=== PATIENT | male | born 1960 | race Two or more races ===

== ENCOUNTER 2020-03-27 15:03 | Inpatient (IN) | payer OTHER ==
[~2020-03-27] VITALS: Ht 170.2 cm; Wt 54.9 kg
--- NOTE | 2020-03-27 15:08 | NUR ---
ED Nurse Note: Officer Yan # [id number] placed patient on 5150.
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
[2020-03-27 15:16] VITALS: BP 140/92
--- NOTE | 2020-03-27 15:30 | NUR ---
ED Nurse Note: all patient's belongiongs were placed in locker #3
--- NOTE | 2020-03-27 16:39 | Diagnostic Imaging Report ---
Indication: Chest pain Technique: One view of the chest Comparison: none Findings: Lungs and pleural spaces are clear. The heart size is normal. Impression: No acute process
[2020-03-27 17:13] LABS: BASOPHILS % (AUTO) 2.6 % (0.0-2.0); EOSINOPHILS % (AUTO) 2.9 % (0.0-3.0); HEMATOCRIT 42.1 % (42.0-52.0); LYMPHOCYTES % (AUTO) 36.2 % (20.0-45.0); MEAN CORPUSCULAR VOLUME 94 FL (80-99); MONOCYTES % (AUTO) 9.9 % (1.0-10.0); NEUTROPHILS % (AUTO) 48.4 % (45.0-75.0); PLATELET COUNT 180 K/UL (150-450); RED BLOOD COUNT 4.46 M/UL (4.70-6.10); RED CELL DISTRIBUTION WIDTH 13.3 % (11.6-14.8); WHITE BLOOD COUNT 7.6 K/UL (4.8-10.8)
[2020-03-27 17:19] LABS: ANION GAP 12 mmol/L (5-15); BLOOD UREA NITROGEN 19 mg/dL (7-18); CALCIUM 9.1 MG/DL (8.5-10.1); CARBON DIOXIDE 24 MMOL/L (21-32); CHLORIDE 107 MMOL/L (98-107); CREATININE 1.2 MG/DL (0.55-1.30); POTASSIUM 4.1 MMOL/L (3.5-5.1); SODIUM 143 MMOL/L (136-145)
[2020-03-27 17:30] LABS: ALANINE AMINOTRANSFERASE 20 U/L (12-78); ALBUMIN 3.8 G/DL (3.4-5.0); ALKALINE PHOSPHATASE 126 U/L (46-116); ASPARTATE AMINO TRANSFERASE 23 U/L (15-37)
--- NOTE | 2020-03-27 17:30 | NUR ---
ED Nurse Note: Patient is in the room, calm and cooperative. AAO x4, VSS at this time, NAD noted.
[2020-03-27 17:52] LABS: BILIRUBIN,TOTAL 0.3 MG/DL (0.2-1.0)
[2020-03-27 17:59] LABS: ALBUMIN/GLOBULIN RATIO 0.9 (1.0-2.7)
[2020-03-27 18:54] VITALS: BP 140/92
--- NOTE | 2020-03-27 19:26 | NUR ---
HAND-OFF: Report given to JANI Lazcano.
--- NOTE | 2020-03-27 19:30 | NUR ---
ED Nurse Note: Report received from JANI Brown. Pt is resting bed, NAD. Safety precuations in place, RN bedside.
--- NOTE | 2020-03-27 20:30 | NUR ---
ED Nurse Note: Pt able to use urinal bedside. Urine sample sent to lab.
[2020-03-27 20:54] LABS: APPEARANCE,URINE CLEAR; BILIRUBIN, URINE NEGATIVE (NEGATIVE); GLUCOSE, URINE (UA) NEGATIVE (NEGATIVE); KETONES,URINE NEGATIVE (NEGATIVE); LEUKOCYTE ESTERASE ,URINE NEGATIVE (NEGATIVE); NITRITE,URINE NEGATIVE (NEGATIVE); PH,URINE 5 (4.5-8.0); PROTEIN,URINE 2+ (NEGATIVE); UROBILINOGEN,URINE NORMAL MG/DL (0.0-1.0)
[2020-03-27 20:56] LABS: COLOR,URINE YELLOW
[2020-03-27 21:00] VITALS: BP 130/85
--- NOTE | 2020-03-27 21:00 | NUR ---
ED Nurse Note: Pt is resting in bed at this time. RN bedside, monitoring pt.
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
--- NOTE | 2020-03-27 21:55 | NUR ---
ED Nurse Note: Pt began yelling inappropriate language on the unit and is anxious at this time. Pt reminded that behavior is not appropriate. Will continue to monitor. RN bedside, safety measures in place.
--- NOTE | 2020-03-27 22:00 | NUR ---
ED Nurse Note: Report given to receiving RN.
--- NOTE | 2020-03-27 22:00 | NUR ---
ED Nurse Note: Pt is being uncooperative at this time and yelling in room. CRE/VRE/MRSA swabs not obtained. Endorsed to receiving nurse.
--- NOTE | 2020-03-27 22:10 | NUR ---
ED Nurse Note: Pt is stable for transfer to MS unit at this time per ERMD. Pt is aaox4, no respiratory distress and is ambulatory with steady gait. Pt vitals are stable. Pt taken to unit via wheelchair by RN. Pt belongings taken out of locker and transferred up to unit with pt. Pt IV is patent and intact. Physical copy of 5150 hold handed to discharge rn on unit.
--- NOTE | 2020-03-27 23:50 | NUR ---
ED Nurse Note: Spoke with Riddhi at [facility], states she will fax pt paperwork.
[2020-03-28 00:17] VITALS: BP 109/70
[2020-03-28] MEDS ORDERED: DULCOLAX10 MG RC (01:10)
[2020-03-28] MEDS ORDERED: LATANOPROST 0.7.5 ML OP (01:10)
[2020-03-28] MEDS ORDERED: FLEET ENEMA133 M1 RC (01:10)
[2020-03-28] MEDS ORDERED: TRUVADA 200 MG1 EAC1 ORAL (01:10)
[2020-03-28] MEDS ORDERED: PREZISTA600 MG ORAL (01:10)
[2020-03-28] MEDS ORDERED: COLACE100 MG ORAL (01:10)
[2020-03-28] MEDS ORDERED: OYSTER SHELL 21 EAC1 PO (01:10)
[2020-03-28] MEDS ORDERED: ACETAMINOPHEN500 MG ORAL (01:10)
[2020-03-28] MEDS ORDERED: KEPPRA500 M4 ORAL (01:10)
[2020-03-28] MEDS ORDERED: WELLBUTRIN SR100 MG ORAL (01:10)
[2020-03-28] MEDS ORDERED: IBUPROFEN600 M1 ORAL (01:10)
[2020-03-28] MEDS ORDERED: NORCO 5-325 TA1 EAC1 ORAL (01:10)
[2020-03-28] MEDS ORDERED: NORVIR100 M2 ORAL (01:10)
[2020-03-28] MEDS ORDERED: DIAZEPAM5 MG ORAL (01:10)
[2020-03-28] MEDS ORDERED: DUONEB 0.5-3(2.53 ML HHN (01:10)
[2020-03-28] MEDS ORDERED: SENNA-S TABLET1 EACH PO (01:10)
[2020-03-28] MEDS ORDERED: MELATONIN3 MG ORAL (01:10)
[2020-03-28] MEDS ORDERED: MILK OF MA400 MG/51 ORAL (01:10)
[2020-03-28] MEDS ORDERED: Milk of Magnesia 30ml Ud ORAL PRN (01:30)
[2020-03-28] MEDS ORDERED: Fleet's Enema 133ml RECTAL PRN (01:30)
[2020-03-28] MEDS ORDERED: Acetaminophen 500mg (ES) tab ORAL PRN (01:30)
[2020-03-28] MEDS ORDERED: HYDROcodone/Acetamin 5/325 tab ORAL PRN ×3 (01:30→07:30)
[2020-03-28] MEDS ORDERED: Albuterol/Ipratropium 3ml neb HHN PRN (01:30)
[2020-03-28 03:59] VITALS: BP 119/76
[2020-03-28 06:36] LABS: BASOPHILS % (AUTO) 1.3 % (0.0-2.0); EOSINOPHILS % (AUTO) 4.7 % (0.0-3.0); HEMATOCRIT 36.4 % (42.0-52.0); HEMOGLOBIN 12.3 G/DL (14.2-18.0); LYMPHOCYTES % (AUTO) 38.3 % (20.0-45.0); MEAN CORPUSCULAR VOLUME 87 FL (80-99); MONOCYTES % (AUTO) 11.5 % (1.0-10.0); NEUTROPHILS % (AUTO) 44.2 % (45.0-75.0); PLATELET COUNT 155 K/UL (150-450); RED BLOOD COUNT 4.16 M/UL (4.70-6.10); RED CELL DISTRIBUTION WIDTH 11.8 % (11.6-14.8); WHITE BLOOD COUNT 5.2 K/UL (4.8-10.8)
[2020-03-28 06:55] LABS: ANION GAP 6 mmol/L (5-15); BLOOD UREA NITROGEN 19 mg/dL (7-18); CALCIUM 8.5 MG/DL (8.5-10.1); CARBON DIOXIDE 29 MMOL/L (21-32); CHLORIDE 109 MMOL/L (98-107); CREATININE 1.2 MG/DL (0.55-1.30); SODIUM 144 MMOL/L (136-145)
--- NOTE | 2020-03-28 07:03 | NUR ---
HAND-OFF: Report given to Jamison Bain RN.
--- NOTE | 2020-03-28 07:43 | NUR ---
NURSE NOTES: pt in the bed awake and eating breakfast. No SOB noted. Denies any pain. Left hand IV line saline lock inplace. No acute distress noted at this time. pt is calm and quiet. call light is within reach, will follow plan of care.
[2020-03-28 08:00] VITALS: BP 105/69
[2020-03-28] MEDS ORDERED: BuPROPion SR 150mg tab ORAL SCH (09:00)
[2020-03-28] MEDS ORDERED: Ritonavir 100mg tab ORAL SCH (09:00)
[2020-03-28] MEDS ORDERED: Docusate 100mg cap ORAL SCH (09:00)
[2020-03-28] MEDS ORDERED: Darunavir 600mg tab ORAL SCH (09:00)
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
--- NOTE | 2020-03-28 10:32 | NUR ---
FILL MANAGER NOTE Dr. Fatima ordered this pt to transfer psych unit: [facility], [facility] or [facility]. SW spoke w/ ATYA from [facility] and [facility] [phone] that there is no male bed available today and declined this SW to fax the referral packet. SW spoke w/ Shereen from [facility] [phone] that there is no bed available for wheelchair bound. Addendum: 03/28/20 at 1302 by LANI FLOWERS SW SW was informed by CM that pt is not welcome to return [facility]. Pt does not have any bed hold. LESLIE informed pt that he is not welcome to return. Pt was frustrated with such news. Pt reports his belongings,. wheelchair and money is at [facility] that he has to return there. LESLIE offered board and care and independent living facilities but pt declined and stated that he has section8 voucher. LESLIE explained pt that this SW cannot assist pt w/ finding section 8 apartment but can only provide resource on section 8 apartments.Pt verbalized understanding. Pt wants to talk to his counselor, Rossana at [facility] and discuss DC planning.
--- NOTE | 2020-03-28 11:07 | NUR ---
NURSE NOTES: Patient was seen by Dr. Pena @ the bedside and Dr. Pena cleared the patient for discharge. Dr. Fatima was paged. Awaiting for Dr. Fatima to call back.
[2020-03-28 12:00] VITALS: BP 108/75
--- NOTE | 2020-03-28 13:30 | History and Physical Report ---
DATE OF ADMISSION: 03/27/2020 DATE AND TIME SEEN: 03/28/2020 at 9 a.m. FILM OR TAPE LIBRARIAN: Alf Pena M.D. CHIEF COMPLAINT: Encephalopathy, confusion, agitation. BRIEF HISTORY: This is a 60-year-old male from [facility], presented with above-mentioned diagnosis, was sent to [facility], diagnosed with the above, admitted to medical floor. Currently, slightly anxious in bed, no complaint. REVIEW OF SYSTEMS: No chest pain. No shortness of breath. No nausea, vomiting, or diarrhea. PAST MEDICAL HISTORY: Includes encephalopathy and chronic back pain. PAST SURGICAL HISTORY: Appendectomy. ALLERGIES: Ceftriaxone. MEDICATIONS: Include Wellbutrin, Prezista, Valium, Truvada, Keppra, Norvir, Dulcolax, Colace, magnesium. SOCIAL HISTORY: No smoking. Positive alcohol. No intravenous drug abuse. FAMILY HISTORY: Noncontributory. PHYSICAL EXAMINATION: GENERAL: Slightly anxious in bed, oriented x3, in no acute distress. VITAL SIGNS: Temperature is 97 degrees, pulse 80, respirations 17, blood pressure 105/69. CARDIOVASCULAR: No murmur. LUNGS: Distant and clear. ABDOMEN: Bowel sounds positive. Nontender. Nondistended. EXTREMITIES: No cyanosis, clubbing, or edema. NEUROLOGIC: The patient moves all extremities, slightly weak. LABORATORY AND DIAGNOSTIC DATA: Labs at this time show hemoglobin and hematocrit of 12/36, otherwise CBC is normal. BMP showed chloride 109, BUN 19. Troponin 0.00. Alkaline phosphatase 126. Urinalysis - 2+ protein, otherwise normal. Urine tox is positive for benzodiazepine and opiates. ASSESSMENT: 1. Encephalopathy. 2. Confusion. 3. Agitation. 4. Anemia. PLAN: 1. Psych and dietary followup. 2. Resume home medications. 3. Pain control. 4. Transfer to Psychiatry. Jaydon Fatima D.O. DR: CORRINE JOB#: [id number] CC:
--- NOTE | 2020-03-28 14:05 | NUR ---
CASE MANAGEMENT: INITIAL REVIEW 60YR OLD MALE BIBA FROM [facility] CC:BEHAVIOR COMPLAINT SI:ENCEPHALOPATHY . CHRONIC BACK PAIN PMH: HIV 97.6 90 16 140/92 99% ON RA BUN 19 ALKP 126 URINE OPIATES + URINE BENZO + ALCOHOL <3 SALICYLATE 1.0 IS:KEPPRA PO BID WELLBUTRIN SR PO BID NORCO Q6HR/PRN \: 4E MED SURG UNIT PLAN: PSYC EVAL CASE MANAGEMENT: REVIEW 03/28/20 SI:ENCEPHALOPATHY . CHRONIC BACK PAIN 98.1 73 17 108/75 96% ON RA BUN 19 IS:KEPPRA PO BID WELLBUTRIN SR PO BID NORCO Q6HR/PRN \: 4E MED SURG UNIT DCP: PLACEMENT NEEDED
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
--- NOTE | 2020-03-28 15:00 | NUR ---
DISCHARGE PLANNED LESLIE informed pt again that he is not welcome to return [facility]. LESLIE offered board and cares and independent living facilities. Pt requested to be referred to independent living facility. Pt agreed to pay for the housing. SW explained negative ramification of unlicensed facilities. Pt verbalized understanding. LESLIE spoke w/ the manager protein, Nate from [facility] [phone] and accepted pt at [address] [place] [address]. LESLIE provide such address and contact information to pt. PT is willing to go to [facility]. Pt will be transported via taxi. LESLIE informed the charge accounts audit clerk. LESLIE spoke w/ Sujata from [facility] Business [facility] that they will issue a check. LESLIE also spoke w/ Sarah from [facility] that his belongings will be dropped off at his new facility. LESLIE relayed all information to pt. Addendum: 03/28/20 at 1657 by LANI NELSON LESLIE reviewed 5150 hold to confirm if notification has to be sent to [place] Officer Lew [phone] but the call did not go through. LESLIE spoke w/ Officer Livan Lucero from [facility] [phone] that notification/intermediate is not needed.
--- NOTE | 2020-03-28 16:16 | NUR ---
*-* INSURANCE *-* ALL CLINICALS AND REVIEWS HAVE BEEN FAXED TO: [facility] Ref# [id number] #[phone] fax# [phone]
--- NOTE | 2020-03-28 16:48 | NUR ---
NURSE NOTES: Patient is discharged to [facility] without any signs of distress. Patient is alert and awake. A&O X3. Respiration is even and unlabored on room air. denies any pain. Belongings checked; inventory paper signed by patient. Patient left with no home medication. Skin is clear and intact. Patient is provided with after-care instructions, provided medication teaching, and to follow-up with any MD's appointment; patient verbalized understanding of after-care instructions. IV site and wrist band removed. Patient is placed in a w/c, escorted to the lobby, and transported via [employer].
[2020-03-28] MEDS ORDERED: Docusate Sod/Senna tab ORAL SCH (21:00)
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
== END 2020-03-28 16:50 | disposition home or self-care (01) | DRG 760 ==
LOC: EDBD 15:03 → EMR 15:15 → 4E 16:35 → EDBEDREQ 22:01
DX: R45.1 Restlessness and agitation (principal); G93.40 Encephalopathy, unspecified; F32.9 Major depressive disorder, single episode, unspecified; Z88.1 Allergy status to other antibiotic agents; G89.29 Other chronic pain; M54.9 Dorsalgia, unspecified; R41.0 Disorientation, unspecified; F19.11 Other psychoactive substance abuse, in remission; F10.11 Alcohol abuse, in remission
CPT/HCPCS: 36415; 71045; 80048; 80053; 80307; 81003; 84484; 85025; 99285; G0480

== ENCOUNTER 2020-03-28 18:00 | Inpatient (IN) | payer OTHER ==
[~2020-03-28] VITALS: Ht 170.2 cm; Wt 66.7 kg
--- NOTE | 2020-03-28 12:30 | NUR ---
*-* INSURANCE *-* UPDATED CLINICALS AND REVIEWS HAVE BEEN FAXED TO: [facility] REF# [id number] F: [phone]
[~2020-03-28 18:00] MED LIST: ACETAMINOPHEN500 MG ORAL; COLACE100 MG ORAL; DIAZEPAM5 MG ORAL; DULCOLAX10 MG RC; DUONEB 0.5-3(2.53 ML HHN; FLEET ENEMA133 M1 RC; IBUPROFEN600 M1 ORAL; KEPPRA500 M4 ORAL; LATANOPROST 0.7.5 ML OP; MELATONIN3 MG ORAL; MILK OF MA400 MG/51 ORAL; NORCO 5-325 TA1 EAC1 ORAL; NORVIR100 M2 ORAL; OYSTER SHELL 21 EAC1 PO; PREZISTA600 MG ORAL; SENNA-S TABLET1 EACH PO; TRUVADA 200 MG1 EAC1 ORAL; WELLBUTRIN SR100 MG ORAL
[2020-03-28 20:20] VITALS: BP 129/89
--- NOTE | 2020-03-28 20:20 | NUR ---
ED Nurse Note: Patient here for head and back pain, non-ambulatory, wheel chair bound could not be cared for at nursing facility he was at. Will continue to monitor.
--- NOTE | 2020-03-28 23:00 | NUR ---
ED Nurse Note: PATIENT PROVIDED WITH URINAL.
--- NOTE | 2020-03-28 23:47 | NUR ---
ED Nurse Note: Report called into Esequiel GUNTER.
--- NOTE | 2020-03-28 23:55 | NUR ---
ED Nurse Note: Patient transported to floor without incident. Belongings sheet completed prior to transport, patient had $60.00 upon departure 3x$20.00.
[2020-03-29] VITALS: BP 117/73
--- NOTE | 2020-03-29 | NUR ---
Received pt from ED via wheelchair, alert, awake, and oriented x 4, c/o headache 5/10 on pain scale. Pt denies blurred vision, no nausea or vomiting. No IV access noted. Will admit pt to floor. Will continue to monitor.
--- NOTE | 2020-03-29 00:19 | NUR ---
Texted Dr. Fatima for admission orders, awaiting for reply.
[2020-03-29 04:00] VITALS: BP 118/75
--- NOTE | 2020-03-29 04:17 | NUR ---
Texted Dr. Fatima again for admission orders, awaiting for reply.
[2020-03-29] MEDS: HYDROcodone/Acetamin 5/325 tab ORAL PRN ×3 (05:04→17:28)
[2020-03-29] MEDS ORDERED: Milk of Magnesia 30ml Ud ORAL PRN (05:30)
[2020-03-29] MEDS ORDERED: Acetaminophen 500mg (ES) tab ORAL PRN (05:30)
[2020-03-29] MEDS ORDERED: Sennosides 8.6mg tab ORAL PRN (05:45)
[2020-03-29] MEDS ORDERED: Fleet's Enema 133ml RECTAL SCH (06:00)
[2020-03-29] MEDS ORDERED: Fleet's Enema 133ml RECTAL PRN (06:15)
--- NOTE | 2020-03-29 07:18 | NUR ---
HAND-OFF: Report given to: JANI Swift. Pt in stable condition.
[2020-03-29 07:21] LABS: ANION GAP 10 mmol/L (5-15); BLOOD UREA NITROGEN 18 mg/dL (7-18); CALCIUM 8.8 MG/DL (8.5-10.1); CARBON DIOXIDE 26 MMOL/L (21-32); CHLORIDE 106 MMOL/L (98-107); POTASSIUM 4.3 MMOL/L (3.5-5.1); SODIUM 141 MMOL/L (136-145)
--- NOTE | 2020-03-29 07:28 | NUR ---
NURSE NOTES: pt in the bed awake. no SOB noted. denies any pain and discomfort. no acute distress noted at this time. call light is within reach, will continue to follow plan of care.
[2020-03-29 07:31] LABS: BASOPHILS % (AUTO) 1.1 % (0.0-2.0); EOSINOPHILS % (AUTO) 1.8 % (0.0-3.0); HEMATOCRIT 37.9 % (42.0-52.0); HEMOGLOBIN 13.4 G/DL (14.2-18.0); LYMPHOCYTES % (AUTO) 31.6 % (20.0-45.0); MEAN CORPUSCULAR VOLUME 86 FL (80-99); MONOCYTES % (AUTO) 9.5 % (1.0-10.0); NEUTROPHILS % (AUTO) 55.9 % (45.0-75.0); PLATELET COUNT 168 K/UL (150-450); RED BLOOD COUNT 4.39 M/UL (4.70-6.10); RED CELL DISTRIBUTION WIDTH 11.5 % (11.6-14.8); WHITE BLOOD COUNT 5.9 K/UL (4.8-10.8)
[2020-03-29 08:00] VITALS: BP 109/86
[2020-03-29] MEDS: Albuterol/Ipratropium 3ml neb HHN SCH ×3 (08:09→19:09)
[2020-03-29] MEDS: Docusate 100mg cap ORAL SCH (09:37)
[2020-03-29] MEDS: Calcium Carbonate 500mg w/Vit D 200iu tab ORAL SCH (09:38)
--- NOTE | 2020-03-29 11:13 | NUR ---
WET PROCESS MILLER HEAD ASSISTANT NOTE SW met w/ pt and clarified his recent DC. PT did not have DME with him when he got there. Pt reports he can use crutch but none was provided. Pt can perform all ADLs and IADLs independently. [facility] does not have a bed for wheelchair bound at this time. LESLIE spoke w/ Rossana from [facility] that his wheelchair is still there. Will drop off his wheelchair at 11am today. Rossana informed this SW that they can drop other belongings to his new housing. LESLIE spoke fernando/ Annette [phone] and is willing to accept pt for housing as long as she receives pt's check from [facility]. LESLIE assisted pt communicating irving Bryant and pt agreed to work wJuan Bryant. Pt wrote the statement giving permission to Annette receiving his check. LESLIE faxed the statement to Sujata, [facility] Business Office [phone] Per Sujata, the check will be available on the next day afternoon. LESLIE relayed all information to CARRILLO Han. Once Annette receives the check, she can provide transportation to pt's new housing. Addendum: 03/29/20 at 1318 by LANI NELSON LESLIE confirmed irving Bryant that she will pick him up tomorrow between 1pm-2pm. Awaiting to get the address from Annette
[2020-03-29 12:00] VITALS: BP 121/71
[2020-03-29 16:00] VITALS: BP 129/76
--- NOTE | 2020-03-29 16:19 | NUR ---
CASE MANAGEMENT: INITIAL REVIEW 60YR OLD MALE BIBA FROM [facility] CC:ENCEPHALOPATHY SI:ENCEPHALOPATHY 98.5 89 18 129/89 99% ON RA IS: ALBUTEROL HHN Q6HR NORCO Q6HR/PRN OSCAL PO QD KEPPRA PO BID \: 3E MED SURG UNIT DCP: PT EVAL PLACEMENT NEEDED ANTICIPATED DC IN AM PER SW
--- NOTE | 2020-03-29 16:27 | NUR ---
CASE MANAGEMENT: REVIEW 03/29/20 SI:ENCEPHALOPATHY 97.2 70 17 109/86 96% ON RA IS: ALBUTEROL HHN Q6HR NORCO Q6HR/PRN OSCAL PO QD KEPPRA PO BID \: 3E MED SURG UNIT DCP: PT EVAL PLACEMENT NEEDED ANTICIPATED DC IN AM PER SW
--- NOTE | 2020-03-29 19:10 | NUR ---
HAND-OFF: Report given to Balaji.
--- NOTE | 2020-03-29 19:48 | NUR ---
NURSE NOTES: Patient in bed, was sleeping, alert and verbally responsive. Able to make needs known. Kept clean and comfortable. Provided safe environment. Bed in low and locked position. No s/s of pain or discomfort noted. Respiration is even and unlabored. Skin is warm and dry to touch. No iv site noted. Call light is at bedside. Will continue plan of care.
[2020-03-29 20:00] VITALS: BP 109/68
[2020-03-29] MEDS ORDERED: Latanoprost 0.005% Opth 2.5ml Soln BOTH EYES SCH (21:00)
--- NOTE | 2020-03-29 22:15 | History and Physical Report ---
DATE OF ADMISSION: 03/28/2020 TIME SEEN: Approximate time is 2 p.m. CONSULTING PHYSICIAN: Jaydon Fatima D.O. REFERRING PHYSICIAN: Alf Pena M.D. CHIEF COMPLAINT: Encephalopathy, confusion, and agitation. HISTORY OF PRESENT ILLNESS: This is a 60-year-old male from [facility] with above-mentioned diagnoses. Yesterday he was admitted to [facility] for above. The patient was sent back to longterm agitation, currently sleeping in bed, not talking much. REVIEW OF SYSTEMS: Unavailable. PAST MEDICAL HISTORY: Includes chronic back pain and encephalopathy. PAST SURGICAL HISTORY: Appendectomy. MEDICATIONS: Include Xalatan, Wellbutrin, Os-Nahid, Prezista, Truvada, Keppra, Norvir, ibuprofen, Tylenol, bisacodyl, and hydrocodone. ALLERGIES: Rocephin. SOCIAL HISTORY: No smoking. Positive alcohol. No intravenous drug abuse. FAMILY HISTORY: Noncontributory. PHYSICAL EXAMINATION: GENERAL: Calm, sleeping in bed, not talking much. VITAL SIGNS: Temperature is 98 degrees, pulse 67, respirations 17, blood pressure 120/71. CARDIOVASCULAR: No murmur. LUNGS: Distant and clear. ABDOMEN: Bowel sound positive. Nontender. Nondistended. EXTREMITIES: No cyanosis, clubbing, or edema. NEUROLOGIC: The patient moves all extremities, slightly weak. LABORATORY DATA: Hemoglobin and hematocrit 13/37, otherwise normal. BMP is normal. ASSESSMENT: 1. Encephalopathy. 2. Confusion. 3. Agitation. 4. Anemia. 5. Chronic back pain. PLAN: 1. Pain control. 2. PT and dietary evaluation. 3. CBC and BMP morning. 4. Psych transfer versus discharge planning to [facility] facility. Jaydon Fatima D.O. DR: Dayami JOB#: [id number] CC:
[2020-03-30] VITALS: BP 105/68
[2020-03-30] MEDS: HYDROcodone/Acetamin 5/325 tab ORAL PRN ×3 (00:31→13:28)
[2020-03-30] MEDS: Albuterol/Ipratropium 3ml neb HHN SCH ×3 (00:54→13:00)
[2020-03-30 04:00] VITALS: BP 112/63
[2020-03-30 07:22] LABS: HEMATOCRIT 40.5 % (42.0-52.0); HEMOGLOBIN 13.1 G/DL (14.2-18.0); LYMPHOCYTES % (AUTO) 35.7 % (20.0-45.0); MEAN CORPUSCULAR VOLUME 93 FL (80-99); MONOCYTES % (AUTO) 7.8 % (1.0-10.0); NEUTROPHILS % (AUTO) 53.5 % (45.0-75.0); PLATELET COUNT 149 K/UL (150-450); RED BLOOD COUNT 4.35 M/UL (4.70-6.10); RED CELL DISTRIBUTION WIDTH 11.1 % (11.6-14.8); WHITE BLOOD COUNT 6.7 K/UL (4.8-10.8)
[2020-03-30 07:24] LABS: ANION GAP 10 mmol/L (5-15); BLOOD UREA NITROGEN 24 mg/dL (7-18); CALCIUM 8.7 MG/DL (8.5-10.1); CARBON DIOXIDE 25 MMOL/L (21-32); CHLORIDE 106 MMOL/L (98-107); CREATININE 1.1 MG/DL (0.55-1.30); POTASSIUM 4.1 MMOL/L (3.5-5.1); SODIUM 141 MMOL/L (136-145)
--- NOTE | 2020-03-30 07:30 | NUR ---
NURSE NOTES: Received report from JANI Chavis. Patient A&xO4. On room air, no signs of distress or labored breathing. No IV access, MD aware. Bed in lowest position with call light in reach. Will continue with plan of care.
--- NOTE | 2020-03-30 07:33 | NUR ---
HAND-OFF: Report given to Kathy Ascencio.
[2020-03-30 08:00] VITALS: BP 125/70
[2020-03-30] MEDS: Docusate 100mg cap ORAL SCH (09:00)
--- NOTE | 2020-03-30 09:00 | NUR ---
PT NOTE Received MD order for PT evaluation. Attempted to see patient however patient very agitated at this time, yelling at staff. Patient observed to stand from his wheelchair and take a few steps to the bathroom. Aileen GUNTER notified, will follow.
--- NOTE | 2020-03-30 09:02 | NUR ---
TODDLER GUIDE NOTE LESLIE informed pt that Annette will p/u at 1pm-2pm. Pt reports he does not want to leave today. LESLIE explained DC procedure but pt became irritable. LESLIE relayed all information to Charge Nurse and assigned CM. Addendum: 03/30/20 at 0936 by LANI NELSON LESLIE requested Annette to provide the address. Awaiting for response. This SW did not receive the address yesterday. Addendum: 03/30/20 at 0953 by LANI NELSON Per Annette, pt is accepted at [facility] [address] [place] [address]. Addendum: 03/30/20 at 1007 by LANI NELSON Charge nurse spoke w/ pt and confirmed pt is willing to go to the facility today.
--- NOTE | 2020-03-30 09:36 | General Progress Note ---
Assessment/Plan Problem List: (1) Pain ICD Codes: R52 - Pain, unspecified SNOMED: 27469615 (2) Encephalopathy ICD Codes: G93.40 - Encephalopathy, unspecified SNOMED: 58575304 Status: unchanged Assessment/Plan: pain control psc tx dc if clear Subjective Constitutional: Reports: weakness Allergies: Coded Allergies: CEFTRIAXONE (Verified Allergy, Unknown, 03/27/20) All Systems: reviewed and negative except above Subjective sl anxious Objective Last 24 Hour Vital Signs Date Time Temp Pulse Resp B/P (MAP) Pulse Ox O2 Delivery O2 Flow Rate FiO2 03/30/20 08:00 97.0 79 18 125/70 (88) 98 03/30/20 04:00 98.2 74 18 112/63 (79) 96 03/30/20 00:00 98.0 66 18 105/68 (80) 97 03/29/20 20:27 Room Air 03/29/20 20:00 97.9 71 16 109/68 (82) 98 03/29/20 16:00 98.4 69 18 129/76 (93) 98 03/29/20 15:46 72 20 99 Room Air 21 69 20 97 03/29/20 12:00 98.1 67 17 121/71 (88) 98 Intake and Output 03/29/20 03/30/20 19:00 07:00 Intake Total 360 ml 600 ml Output Total 300 ml 1000 ml Balance 60 ml -400 ml Intake Oral 360 ml 600 ml Output Urine Total 300 ml 1000 ml Laboratory Tests 03/30/20 05:35: White Blood Count 6.7, Red Blood Count 4.35L, Hemoglobin 13.1L, Hematocrit 40.5L , Mean Corpuscular Volume 93#, Mean Corpuscular Hemoglobin 30.1, Mean Corpuscular Hemoglobin Concent 32.4, Red Cell Distribution Width 11.1L, Platelet Count 149L, Mean Platelet Volume 7.9, Neutrophils (%) (Auto) 53.5, Lymphocytes (%) (Auto) 35.7, Monocytes (%) (Auto) 7.8, Eosinophils (%) (Auto) 2.0, Basophils (%) (Auto) 1.0, Sodium Level 141, Potassium Level 4.1, Chloride Level 106, Carbon Dioxide Level 25, Anion Gap 10, Blood Urea Nitrogen 24H, Creatinine 1.1, Estimat Glomerular Filtration Rate > 60, Glucose Level 122H, Calcium Level 8.7 Height (Feet): 5 Height (Inches): 7.00 Weight (Pounds): 147 General Appearance: lethargic EENT: normal ENT inspection Neck: normal alignment Cardiovascular: normal peripheral pulses, normal rate, regular rhythm Respiratory/Chest: chest wall non-tender, lungs clear, normal breath sounds Abdomen: normal bowel sounds, non tender, soft Extremities: normal inspection Edema: no edema noted Arm (L), no edema noted Arm (R), no edema noted Leg (L), no edema noted Leg (R), no edema noted Pedal (L), no edema noted Pedal (R), no edema noted Generalized Neurologic: motor weakness Skin: normal pigmentation, warm/dry Jaydon Fatima Mar 30, 2020 09:36
[2020-03-30] MEDS: Calcium Carbonate 500mg w/Vit D 200iu tab ORAL SCH (09:47)
[2020-03-30] MEDS ORDERED: BUPROPION HCL100 MG ORAL (09:56)
[2020-03-30] MEDS ORDERED: IBUPROFEN600 M1 ORAL (09:58)
[2020-03-30] MEDS ORDERED: LATANOPROST2.5 ML BOTH EYES (09:59)
[2020-03-30] MEDS ORDERED: Darunavir 600mg tab ORAL SCH (10:00)
[2020-03-30] MEDS ORDERED: Ritonavir 100mg tab ORAL SCH (10:00)
[2020-03-30 12:00] VITALS: BP 118/75
--- NOTE | 2020-03-30 12:31 | NUR ---
*-* INSURANCE *-* UPDATED CLINICALS AND REVIEWS HAVE BEEN FAXED TO: [facility] REF# [id number] F: [phone]
--- NOTE | 2020-03-30 15:00 | NUR ---
NURSE NOTES: Patient discharged to [facility]. Discharge protocol followed.
--- NOTE | 2020-03-30 15:00 | NUR ---
NURSE NOTES: Patient discharged to [facility]. Discharge protocol followed.
--- NOTE | 2020-04-01 15:50 | Discharge Summary ---
Discharge Summary Discharge Summary _ DATE OF ADMISSION: 03/29/2020 DATE OF DISCHARGE: 03/30/2020 DISCHARGED BY: Dr. Jaydon Fatima BRIEF HOSPITAL COURSE: Patient is a 60-year-old male, who was just discharged from the hospital, was brought into ED from [facility] due to encephalopathy, confusion and agitation. Patient was admitted to medical floor. Prior medications continued. Case management and psychotherapist social worker were called to aid with discharge. Coordination was made and patient was accepted to [facility]. FINAL DIAGNOSES: Encephalopathy DISPOSITION: Patient was discharged to a [id number] DISCHARGE MEDICATIONS: Refer to Discharge Medication List. DISCHARGE INSTRUCTIONS: Follow-up in a week. I have been assigned to complete a discharge summary on this account, I was not involved with the patient's management.--KAYKAY Ha Jacqueline Robles NP Apr 01, 2020 15:50
--- NOTE | 2020-04-02 16:11 | NUR ---
*-* INSURANCE *-* DISCHARGE SUMMARY HAS BEEN FAXED [facility] REF# [id number] F: [phone]
--- NOTE | 2020-04-02 22:22 | Emergency Room Report ---
History of Present Illness General Chief Complaint: Pain Source: Patient Present Illness HPI 60-year-old male presents for evaluation. Patient was admitted yesterday to hospital for psychiatric evaluation after he became combative at his [facility] facility. Patient was subsequently cleared and discharged to an assisted living facility this morning. However the facility stated they could not accommodate patients with a wheelchair. Patient had nowhere else to go so he came here to the hospital. Denies pain. Denies SI or HI. No other aggravating relieving factors. Denies any other associated symptoms Allergies: Coded Allergies: CEFTRIAXONE (Verified Allergy, Unknown, 03/27/20) COVID-19 Screening Contact w/high risk pt: Yes Recent Travel to affected area: No Experienced COVID-19 symptoms?: No COVID-19 Testing performed [employer]: No Patient History Past Medical History: psych hx Past Surgical History: none Pertinent Family History: none Social History: Denies: smoking, alcohol use, drug use Immunizations: UTD Reviewed Nursing Documentation: PMH: Agreed; PSxH: Agreed Nursing Documentation-PMH Past Medical History: No History, Except For Hx Cardiac Problems: No Hx Cancer: No Hx Gastrointestinal Problems: No Hx Neurological Problems: Yes Hx Cerebrovascular Accident: No Hx Transient Ischemic Attacks: No Hx Dementia: No Hx Alzheimer's Disease: No Hx Parkinson's Disease: No Hx Meningitis: No Hx Encephalitis: No Hx Seizures: No Hx Epilepsy: No Hx Multiple Sclerosis: No Hx Cerebral Palsy: No Hx Amyotrophic Lat Sclerosis: No Hx Guillian-Mcneal Syndrome: No Hx Paralysis: Yes Hx Peripheral Neuropathy: No Hx Spinal Cord Injury: No Hx Head Trauma: No Hx Traumatic Brain Injury: Yes Hx Memory Loss: No Hx Concentration Difficulty: No Hx Speech Problem: No Hx Tremors: No Hx Vertigo: No Hx Dizziness: No Hx Syncope: No Hx Headaches: Yes Hx Aphasia: No Hx Dysphasia: No Hx Numbness: No Hx Weakness: No Hx Fatigue: No Hx Neurologic Surgery: No Hx Brain Shunt: No Review of Systems All Other Systems: negative except mentioned in HPI Physical Exam Vital Signs Date Time Temp Pulse Resp B/P (MAP) Pulse Ox O2 Delivery O2 Flow Rate FiO2 03/29/20 08:00 97.2 70 17 109/86 (94) 96 03/29/20 08:08 Room Air 21 Sp02 EP Interpretation: reviewed, normal General Appearance: no apparent distress, alert, GCS 15, non-toxic Head: normocephalic, atraumatic Eyes: bilateral eye normal inspection, bilateral eye PERRL ENT: hearing grossly normal, normal pharynx, no angioedema, normal voice Neck: full range of motion, supple/symm/no masses Respiratory: chest non-tender, lungs clear, normal breath sounds, speaking full sentences Cardiovascular #1: regular rate, rhythm, no edema Cardiovascular #2: 2+ carotid (R), 2+ carotid (L), 2+ radial (R), 2+ radial (L) , 2+ dorsalis pedis (R), 2+ dorsalis pedis (L) Gastrointestinal: normal bowel sounds, non tender, soft, non-distended, no guarding, no rebound Rectal: deferred Genitourinary: normal inspection, no CVA tenderness Musculoskeletal: back normal, normal range of motion, gait/station normal, non- tender Neurologic: alert, motor strength/tone normal, oriented x3, sensory intact, responsive, speech normal Psychiatric: judgement/insight normal, memory normal, mood/affect normal, no suicidal/homicidal ideation Reflexes: 3+ bicep (R), 3+ bicep (L), 3+ tricep (R), 3+ tricep (L), 3+ knee (R) , 3+ knee (L) Skin: other - see nursing skin notes Lymphatic: no adenopathy Medical Decision Making Diagnostic Impression: Primary Impression: Pain Additional Impression: Encephalopathy ER Course 60-year-old male presents for evaluation after he was not accepted at his assisted living facility due to wheelchair access. I discussed with his PMD Dr. Fatima. He agreed to admit the patient so that they can seek additional housing placement options for the patient. vitals stable. Labs performed this morning and do not require to be repeated at this time. Last Vital Signs Date Time Temp Pulse Resp B/P (MAP) Pulse Ox O2 Delivery O2 Flow Rate FiO2 03/30/20 12:00 97.0 74 18 118/75 (89) 96 03/30/20 09:00 Room Air 03/29/20 15:46 21 Status: improved Disposition: PLACE IN OBSERVATION Condition: Stable Referrals: Jaydon Fatima DO (PCP) Kevon Lowe MD Apr 02, 2020 22:22
--- NOTE | 2020-04-17 13:47 | Coder Physician Query ---
Clarification is required for compliance, coding accuracy, and to reflect severity of illness for this patient Dear Dr. BONE Date: 04/17/20 Utility Bill Collection Clerk/CDS Name: REYNAАННА BRIEF HOSPITAL COURSE: Patient is a 60-year-old male, who was just discharged from the hospital, was brought into ED from [facility] due to encephalopathy, confusion and agitation. MEDICATIONS: Include Xalatan, Wellbutrin, Os-Nahid, Prezista, Truvada, Keppra, Norvir, ibuprofen, Tylenol, bisacodyl, and hydrocodone. LABORATORY DATA: Hemoglobin and hematocrit 13/37, otherwise normal. BMP is normal. ASSESSMENT: 1. Encephalopathy. 2. Confusion. 3. Agitation. 4. Anemia. 5. Chronic back pain. FINAL DIAGNOSES: Encephalopathy Please respond to the following question: Is there a specific diagnosis for the underlying cause of the encephalopathy? If so please state below. PHYSICIAN RESPONSE: DENI BONE D.O. Date & TIME Please also document in your Progress Notes and/or Discharge Summary and indicate if the condition was present on admission. NEDA
== END 2020-03-30 15:15 | disposition home or self-care (01) | DRG 52 ==
LOC: EMR 19:05 → 4E 23:33 → EDBEDREQ 23:43 → OBSVTOIN 03-29 20:14
DX: G93.40 Encephalopathy, unspecified (principal); R45.1 Restlessness and agitation; M54.5 Low back pain; D64.9 Anemia, unspecified; G89.29 Other chronic pain; M54.9 Dorsalgia, unspecified; Z99.3 Dependence on wheelchair
CPT/HCPCS: 36415; 80048; 85025; 94640; 99284; J7620